=== PATIENT | male | born 1995 | race African-American/Black ===

== ENCOUNTER 2023-02-03 17:28 | Emergency (ER) | payer OTHER ==
[~2023-02-03] VITALS: Ht 172.7 cm; Wt 71.7 kg
[2023-02-03 17:49] LABS: BASOPHILS % (AUTO) 0.2 % (0.0-5.0); EOSINOPHILS % (AUTO) 2.5 % (0.0-8.0); HEMATOCRIT 42.6 % (42-54); LYMPHOCYTES % (AUTO) 57.5 % (21.0-51.0); MEAN CORPUSCULAR HEMOGLOBIN 27.9 pg (27.0-33.0); MEAN CORPUSCULAR HGB CONC 35.2 g/dL (32.0-36.0); MEAN CORPUSCULAR VOLUME 79.3 fL (79-99); MONOCYTES % (AUTO) 8.3 % (3.0-13.0); NEUTROPHILS % (AUTO) 31.3 % (40.0-77.0); PLATELET COUNT (AUTO) 195 K/uL (130-400); RED BLOOD CELL COUNT(AUTO) 5.37 MIL/uL (4.50-6.20); RED CELL DISTRIBUTION WIDTH 14.6 % (11.0-15.5); WHITE BLOOD COUNT (AUTO) 5.2 K/uL (4.8-10.8)
[2023-02-03 18:01] LABS: POTASSIUM 4.1 mmol/L (3.5-5.1)
[2023-02-03 18:05] LABS: ALBUMIN 4.2 g/dL (3.5-5.0)
[2023-02-03 19:18] VITALS: BP 114/77
== END 2023-02-03 19:49 | disposition home or self-care (01) ==
LOC: EDH 17:28
DX: H92.02 Otalgia, left ear (principal); R11.0 Nausea; R51.9 Headache, unspecified; R10.9 Unspecified abdominal pain; Z20.822 Contact with and (suspected) exposure to COVID-19; Z88.0 Allergy status to penicillin
CPT/HCPCS: 99283; 87635; 80053; 85025; 87804 ×2; 36415; C9803